=== PATIENT | female | born 1985 | race African-American/Black ===

== ENCOUNTER 2019-03-18 23:41 | Observation (INO) | payer MEDICAID ==
[~2019-03-18] VITALS: Ht 167.6 cm; Wt 92.5 kg
[2019-03-18] MEDS ORDERED: PREN-99 PO (23:49)
[2019-03-19 01:12] LABS: CLARITY URINE CLEAR (CLEAR); COLOR URINE YELLOW (YELLOW); KETONES URINE TRACE (NEGATIVE); LEUKOCYTE ESTERASE URINE NEGATIVE (NEGATIVE); NITRITE URINE NEGATIVE (NEGATIVE); OCCULT BLOOD URINE NEGATIVE (NEGATIVE); PH URINE 6.5 (4.5-8.0); PROTEIN URINE NEGATIVE (NEGATIVE); SPECIFIC GRAVITY URINE 1.012 (1.005-1.030); UROBILINOGEN URINE 0.2 E.U./dL (0.2-1.0)
[2019-03-19 01:13] LABS: BASOPHILS % 0.6 % (0.0-2.0); EOSINOPHILS % 0.3 % (0.0-5.0); HEMATOCRIT. 32.4 % (36.0-48.0); HEMOGLOBIN. 10.9 g/dL (12.0-16.0); LYMPHOCYTES % 21.4 % (20.0-50.0); MEAN CORPUSCULAR HEMOGLOBIN 28.5 pg (28.0-32.0); MEAN CORPUSCULAR VOLUME 84.4 fL (81.0-99.0); MEAN PLATELET VOLUME 8.6 fl (7.4-10.4); MONOCYTES % 3.8 % (2.0-8.0); NEUTROPHILS % 73.9 % (40.0-76.0); PLATELET 257 x1000/uL (130-400); RED BLOOD CELL COUNT 3.84 mill/uL (4.2-5.4); RED CELL DISTRIBUTION WIDTH 13.2 % (11.6-14.6)
[2019-03-19 01:21] LABS: CHLORIDE 109 mEq/L (98-107)
[2019-03-19 01:22] LABS: D-DIMER 1.32 mg/L FEU (<0.50); PARTIAL THROMBOPLASTIN TIME 28.3 sec (23.4-31.0); PROTHROMBIN TIME 9.8 sec (9.6-11.0)
[2019-03-19] MEDS ORDERED: NIFE10CA PO (02:44)
== END 2019-03-19 02:55 | disposition home or self-care (01) ==
LOC: 8 EST LDRP 23:41
PROVIDERS: ADMIT Specialist; ATTEND Specialist
DX: O62.9 Abnormality of forces of labor, unspecified (principal); O26.893 Other specified pregnancy related conditions, third trimester; R51 Headache; Z3A.39 39 weeks gestation of pregnancy
CPT/HCPCS: 36415; 80053; 81003; 84550; 85025; 85379; 85384; 85610; 85730; 99281; G0378